=== PATIENT | female | born 1965 | race Caucasian/White ===

== ENCOUNTER → 2019-06-19 13:36 | Outpatient (CLI) | payer OTHER, SELFPAY ==
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
[2019-06-19 14:10] LABS: Blood Urea Nitrogen 23 mg/dL (8-26); Estimated Glomerular Filt Rate > 60
== END ==
PROVIDERS: PCP Family Medicine; Visit Provider Nurse Practitioner Family
DX: M19.011 Primary osteoarthritis, right shoulder (principal); S43.491A Other sprain of right shoulder joint, initial encounter; X58.XXXA Exposure to other specified factors, initial encounter
CPT/HCPCS: 73223; A9577

== ENCOUNTER → 2020-04-17 11:34 | Outpatient (CLI) | payer OTHER, SELFPAY ==
--- NOTE | ~2020-04-17 | MM_ITS ---
EXAMINATION: MM screening kong BI w [facility] HISTORY: Screening mammogram TECHNIQUE: Craniocaudal and mediolateral oblique 3-D tomosynthesis images were obtained and synthetic 2-D images were generated. CAD analysis was submitted and interpreted. COMPARISON: 11/20/2018, 04/29/2016, 03/27/2015 bilateral digital screening mammogram examinations BREAST PARENCHYMAL COMPOSITION: The breasts are extremely dense, which lowers the sensitivity of mamm ography. FINDINGS: Bilateral occasional benign calcifications are noted. There is no evidence of suspicious m ass, calcification, or architectural distortion to suggest malignancy in either breast. There has bee n no suspicious interval change. IMPRESSION: 1. No mammographic evidence of malignancy. 2. Recommend routine screening mammography in one year. BI-RADS Category 2: Benign finding(s). Reviewed, dictated and finalized at location A. [employer]
== END ==
PROVIDERS: PCP Family Medicine; Visit Provider Physician Assistant
DX: Z12.31 Encounter for screening mammogram for malignant neoplasm of breast (principal)
CPT/HCPCS: 77063; 77067

== ENCOUNTER → 2021-12-29 16:00 | Outpatient (CLI) | payer OTHER, SELFPAY ==
--- NOTE | ~2021-12-29 | MM_ITS ---
EXAMINATION: MM screening kong BI w [facility] HISTORY: Screening mammogram TECHNIQUE: Craniocaudal and mediolateral oblique 3-D tomosynthesis images were obtained and synthetic 2-D images were generated. CAD analysis was submitted and interpreted. COMPARISON: 04/2020, 11/20/2018, 04/29/2016 bilateral screening mammogram examinations BREAST PARENCHYMAL COMPOSITION: The breasts are extremely dense, which lowers the sensitivity of mamm ography. FINDINGS: There is no evidence of suspicious mass, calcification, or architectural distortion to sugg est malignancy in either breast. There has been no suspicious interval change. IMPRESSION: 1. No mammographic evidence of malignancy. 2. Recommend routine screening mammography in one year. BI-RADS Category 1: Negative Reviewed, dictated and finalized at location A.
== END ==
PROVIDERS: PCP Family Medicine; Visit Provider Obstetrics & Gynecology
DX: Z12.31 Encounter for screening mammogram for malignant neoplasm of breast (principal)
CPT/HCPCS: 77063; 77067

== ENCOUNTER → 2022-01-31 15:55 | Outpatient (CLI) | payer OTHER, SELFPAY ==
--- NOTE | ~2022-01-31 | DEXA_ITS ---
Bone Density Report Name: DAJUAN ESPANA Age: 56 Sex: Female Ethnicity: White Date of : 1965 Indication: postmenopausal; screening for osteoporosis; Referring Provider: AAYUSH DE PAZ Study: Bone densitometry was performed. Exam Date: January 31, 2022 Accession number: [id number] Bone Density: Region BMD T-score Z-score Classification AP Spine (L1, L2) 1.145 1.5 2.7 Normal Femoral Neck (Left) 0.832 -0.2 1.0 Normal Total Hip (Left) 0.953 0.1 0.9 Normal Femoral Neck (Right) 0.799 -0.5 0.7 Normal Total Hip (Right) 0.944 0.0 0.8 Normal Total Hip Mean 0.949 0.1 0.9 Normal World Health Organization criteria for BMD impression classify patients as: Normal (T-score at or above -1.0), Osteopenia (T-score between -1.0 and -2.5), or Osteoporosis (T-score at or below -2.5). 10-year Fracture Risk: FRAX not reported because: All T-scores for Spine Total, Hip Total, Femoral Neck at or above -1.0 Treated for osteoporosis Clinical Information Provided by Patient: Is being treated for osteoporosis Has used the following medications: HRT (i.e. estrogen/hormone therapy), MTV Patient maximum height was 63.75 Menopause Age: 53 Drinks caffeinated beverages Onset of menses at age 13 Number of children 2 Impression: The patient has normal bone mass. Discussion: It is important to ask patients whether they are taking their medications and to encourage continued and appropriate compliance with their osteoporosis therapies to reduce fracture risk. It is also important to review their risk factors and encourage appropriate calcium and vitamin D intakes, exercise, fall prevention and other lifestyle measures. Follow-Up: Consider a repeat BMD and Vertebral Fracture Assessment (VFA) exam in 2 years or sooner if medically necessary, to reassess this patient's status. Reported by: [facility] on 01/31/2022 4:33:00 PM. Reviewed, dictated and finalized at location ANessa CHIU
== END ==
PROVIDERS: PCP Obstetrics & Gynecology; Visit Provider Obstetrics & Gynecology
DX: Z13.820 Encounter for screening for osteoporosis (principal); Z78.0 Asymptomatic menopausal state
CPT/HCPCS: 77080

== ENCOUNTER → 2022-08-29 09:53 | Outpatient (CLI) | payer OTHER, SELFPAY ==
--- NOTE | ~2022-08-29 | XR_ITS ---
Lumbosacral Spine: AP and lateral views Clinical History: Pain Findings: The normal lordotic curve is maintained. No fracture noted. Grade 1 anterolisthesis of L3 o brad L4 present. There is moderate degenerative disc narrowing at L4-L5. There is facet arthropathy fr om L2 through S1. The sacroiliac joints are normally outlined. Impression: Grade I anterolisthesis of L3 over L4. Additional degenerative changes, as above. Reviewed, dictated and finalized at location M. Impression: Grade I anterolisthesis of L3 over L4. Additional degenerative changes, as above.
== END ==
PROVIDERS: PCP Family Medicine; Visit Provider Physician Assistant
DX: M51.26 Other intervertebral disc displacement, lumbar region (principal)
CPT/HCPCS: 72100

== ENCOUNTER → 2022-09-28 15:19 | Outpatient (CLI) | payer OTHER, SELFPAY ==
--- NOTE | ~2022-09-28 | MR_ITS ---
EXAMINATION: MR lumbar spine wo con DATE: 09/28/2022 16:07 INDICATION: Low back pain. TECHNIQUE: Magnetic resonance imaging (MRI) of the lumbar spine was performed without intravenous con trast. Sequences included sagittal T2-weighted FSE, sagittal T2-weighted FS FSE, sagittal T1-weighted FSE, and axial T2-weighted FSE. COMPARISON: Lumbar spine radiograph 08/29/22 FINDINGS: There is 3 mm anterolisthesis of L3 on L4, L4 on L5, and L5 on S1. Vertebral body heights a re normal. There is mildly decreased disc at L1-L2, moderately decreased disc height at L2-L3, mildly decreased disc height at L3-L4, severely decreased disc height at L4-L5, and mildly decreased disc a t L5-S1. The distal spinal cord signal intensity is normal. The conus medullaris is at T12-L1. The fo llowing disc levels are specifically discussed: L1-L2: The disc is bulging. There is mild bilateral facet joint osteoarthritis. There is mild bilater al neural foraminal stenosis. There is mild central canal stenosis. L2-L3: The disc is bulging. There is mild right and moderate left facet joint osteoarthritis. There i s mild bilateral neural foraminal stenosis. There is mild central canal stenosis. L3-L4: The disc is bulging and has an annular fissure. There is severe bilateral facet joint osteoart hritis. There is mild bilateral neural foraminal stenosis. There is mild central canal stenosis. L4-L5: The disc is bulging and has an annular fissure. There is severe bilateral facet joint osteoart hritis. There is mild bilateral neural foraminal stenosis. There is mild central canal stenosis. L5-S1: The disc is bulging. There is severe bilateral facet joint osteoarthritis. There is mild bilat eral neural foraminal stenosis. There is no central canal stenosis. IMPRESSION: 1. Severe lumbar spondylosis. Reviewed, dictated and finalized at location A.
== END ==
DX: M54.41 Lumbago with sciatica, right side (principal); M47.26 Other spondylosis with radiculopathy, lumbar region
CPT/HCPCS: 72148

== ENCOUNTER → 2023-06-14 15:46 | Outpatient (CLI) | payer BC, SELFPAY ==
--- NOTE | ~2023-06-14 | MM_ITS ---
EXAMINATION: MM screening kong BI w [facility]ak HISTORY: Screening TECHNIQUE: Craniocaudal and mediolateral oblique 3-D tomosynthesis images were obtained and synthetic 2-D images were generated. CAD analysis was submitted and interpreted. COMPARISON: Comparison to multiple prior studies sequentially, with oldest reviewed study dated 03/15. BREAST PARENCHYMAL COMPOSITION: Dense: The breasts are extremely dense, which lowers the sensitivity of mammography. FINDINGS: There is no evidence of suspicious mass, calcification, or architectural distortion to sugg est malignancy in either breast. There has been no suspicious interval change. IMPRESSION: 1. No mammographic evidence of malignancy. 2. Recommend routine screening mammography in one year. BI-RADS Category 1: Negative Reviewed, dictated and finalized at location A. SURGEON
== END ==
PROVIDERS: PCP Obstetrics & Gynecology; Visit Provider Obstetrics & Gynecology
DX: Z12.31 Encounter for screening mammogram for malignant neoplasm of breast (principal)
CPT/HCPCS: 77063; 77067

== ENCOUNTER 2024-06-18 16:29 | Outpatient (CLI) | payer BC, SELFPAY ==
--- NOTE | ~2024-06-18 | MM_ITS ---
EXAMINATION: MM screening kong BI w [facility]ak HISTORY: Screening TECHNIQUE: Craniocaudal and mediolateral oblique 3-D tomosynthesis images were obtained and synthetic 2-D images were generated. CAD analysis was submitted and interpreted. COMPARISON: Comparison to multiple prior studies sequentially, with oldest reviewed study dated 03/15. BREAST PARENCHYMAL COMPOSITION: Dense: The breasts are extremely dense, which lowers the sensitivity of mammography. FINDINGS: There is no evidence of suspicious mass, calcification, or architectural distortion to sugg est malignancy in either breast. There has been no suspicious interval change. IMPRESSION: 1. No mammographic evidence of malignancy. 2. Recommend routine screening mammography in one year. BI-RADS Category 1: Negative Reviewed, dictated and finalized at location B. [employer]
== END 2024-06-18 16:30 | disposition home or self-care (01) ==
LOC: MICIMG 16:29
PROVIDERS: PCP Family Medicine; Visit Provider Obstetrics & Gynecology
DX: Z12.31 Encounter for screening mammogram for malignant neoplasm of breast (principal)
CPT/HCPCS: 77063; 77067